=== PATIENT | female | born 1990 | race Caucasian/White ===

== ENCOUNTER 2021-05-21 16:29 | Emergency (ER) | payer OTHER, SELFPAY ==
[2021-05-21 16:39] VITALS: BP 169/113; PULSE 104; RESP 18; TEMP 36.5; O2SAT 100
--- NOTE | 2021-05-21 17:00 | ED.URI ---
HPI - URI/Sore Throat General Chief Complaint: Upper Respiratory Infection Stated Complaint: nasal congestion/ear pain/cough/no taste or smell Time Seen by Provider: 05/21/21 16:46 Source: patient and RN notes reviewed Mode of arrival: ambulatory Limitations: no limitations History of Present Illness HPI Narrative: Patient presents today complaining of nasal congestion, bilateral ear pain, scratchiness in her throat, productive cough, loss of taste or smell, sneezing. Denies shortness of breath. No history of asthma or COPD. Reports history of seasonal allergies for which he normally takes Zyrtec. She has also been taking Sudafed, NyQuil, and Mucinex without relief. Reports history of chronic Lyme disease. MD elicited complaint: cough, nasal congestion and other (Bilateral ear pain) Related Data Home Medications Medication Instructions Recorded Confirmed cetirizine [Zyrtec] 10 mg PO DAILY 05/21/21 05/21/21 meloxicam 15 mg PO DAILY 05/21/21 05/21/21 omeprazole 20 mg PO DAILY 05/21/21 05/21/21 paroxetine HCl 20 mg PO DAILY 05/21/21 05/21/21 Allergies Allergy/AdvReac Type Severity Reaction Status Date / Time cefaclor Allergy Mild Rash Unverified 05/21/21 16:46 cefprozil Allergy Mild Rash Unverified 05/21/21 16:46 Review of Systems Review of Systems: Narrative: CONSTITUTIONAL: Denies body aches, fever, chills, or sweats. EYES: Denies visual changes, redness, or discharge. ENT: Denies rhinorrhea, sore throat. + Ear pain, scratchiness in the throat, loss of taste or smell, sneezing, congestion CARDIOVASCULAR: Denies chest pain, palpitations, or edema. RESPIRATORY: Denies dyspnea. + Cough GASTROINTESTINAL: Denies abdominal pain, nausea, vomiting, or diarrhea. GENITOURINARY: Denies dysuria or hematuria. SKIN: Denies rash, itching, or wounds. MUSCULOSKELETAL: Denies back pain, joint pain, or myalgia. NEUROLOGIC: Denies headache, numbness, tingling, or weakness. PSYCH: Denies depression or anxiety. [facility] Past Medical History Medical History (Updated 05/21/21 @ 18:01 by Marion Bernard, [employer], [place]) GERD (gastroesophageal reflux disease) Seasonal allergies Comments At time of signature, I have reviewed and agree with nursing past medical, surgical, social and family history unless otherwise noted. Please see nursing chart for further information. There is no relevant family history pertinent to the presenting complaint Exam Narrative: Exam Narrative: GENERAL: Well-appearing, well-nourished, and in no acute distress. HEAD: Normocephalic, atraumatic. EYES: EOMI. No redness or drainage. Conjunctivae normal. ENT: Mucous membranes pink and moist. Nares congested with rhinorrhea. Bilateral TMs are injected. Throat normal. Uvula midline. NECK: Normal AROM. Supple. No lymphadenopathy. CHEST: No respiratory distress. Clear to auscultation. HEART: Regular rate and rhythm. No murmur appreciated. Normal peripheral pulses. EXTREMITIES: Normal range of motion. No edema. SKIN: Warm, dry, no rash. Capillary refill normal. Normal skin turgor. NEURO: No focal deficits. Alert and oriented x3. Gait steady. PSYCH: Normal affect. No signs of depression or anxiety. Course Vital Signs Vital signs: Vital Signs Temperature 97.7 F 05/21/21 16:39 Pulse Rate 104 H 05/21/21 16:39 Respiratory Rate 18 05/21/21 16:39 Blood Pressure 169/113 H 05/21/21 16:39 Pulse Oximetry 100 05/21/21 16:39 Temperature 97.7 F 05/21/21 16:39 Pulse Rate 104 H 05/21/21 16:39 Respiratory Rate 18 05/21/21 16:39 Blood Pressure 169/113 H 05/21/21 16:39 Pulse Oximetry 100 05/21/21 16:39 Reviewed. Pt has been instructed to follow up with her PCP regarding her elevated blood pressure today. MDM - URI/Sore Throat Differential Diagnosis Differential diagnosis: Likely upper respiratory infection, otitis media, sinusitis, viral infection, bronchitis, pharyngitis and other (Seasonal allergies) Critical Care Time Critical Care [facility]
== END 2021-05-21 17:10 | disposition home or self-care (01) ==
PROVIDERS: Emergency Provider Nurse Practitioner
DX: H66.93 Otitis media, unspecified, bilateral (principal); J30.9 Allergic rhinitis, unspecified; K21.9 Gastro-esophageal reflux disease without esophagitis
CPT/HCPCS: 99213; G0463